=== PATIENT | female | born 1975 | race American Indian/Alaskan Native ===

== ENCOUNTER 2019-03-10 20:30 | Emergency (ER) | payer MEDICAID ==
--- NOTE | 2019-03-10 21:01 | EDM.PDOC ---
ED HPI GENERAL MEDICAL PROBLEM - General Chief Complaint: Upper Extremity Injury/Pain Stated Complaint: LEFT SHOULDERS, LEFT ARM Time Seen by Provider: 03/10/19 20:50 Source of Information: Reports: Patient History Limitations: Reports: No Limitations - History of Present Illness INITIAL COMMENTS - FREE TEXT/NARRATIVE: This 43 yo female patient reports to the ED with left shoulder pain. The patient reports she was attempting to push her vehicle yesterday at about 1700 when she slipped and fell into the car and down to the ground. The patient reports she has been taking over the counter medications and trying not to move her arm, but continues to have increased pain in her shoulder down into her left upper arm. Onset Date: 03/09/19 Duration: Constant Location: Reports: Upper Extremity, Left Quality: Reports: Ache, Sharp Severity: Moderate Improves with: Reports: Rest Worsens with: Reports: Movement Context: Reports: Activity (ground level fall) Treatments [employer]: Reports: Acetaminophen, NSAIDS Left Upper Shoulder Pain Score (Numeric/FACES): 8 - Related Data Allergies Allergy/AdvReac Type Severity Reaction Status Date / Time codeine Allergy Tachycardia Verified 03/10/19 20:42 Home Meds: Home Meds . [No Known Home Meds] 03/10/19 [History] Past Medical History Gastrointestinal History: Reports: Cholelithiasis UNPAID INTERN History: Reports: - Past Surgical History GI Surgical History: Reports: Cholecystectomy Female Surgical History: Reports: Tubal Ligation Social & Family History - Family History Family Medical History: Noncontributory - Tobacco Use Smoking Status *Q: Current Every Day Smoker Years of Tobacco use: 29 Packs/Tins Daily: 0.5 Used Tobacco, but Quit: No Second Hand Smoke Exposure: Yes - Caffeine Use Caffeine Use: Reports: Soda - Recreational Drug Use Recreational Drug Use: Yes Drug Use in Last 12 Months: Yes Recreational Drug Type: Reports: Marijuana/Hashish Recreational Drug Use Frequency: Binges Review of Systems - Review of Systems Review Of Systems: Comprehensive ROS is negative, except as noted in HPI. ED EXAM, GENERAL - Physical Exam Exam: See Below Exam Limited By: No Limitations General Appearance: Alert, WD/WN, Moderate Distress Eye Exam: Bilateral Eye: EOMI, Normal Inspection, PERRL Ears: Normal External Exam, Normal Canal, Hearing Grossly Normal, Normal TMs Nose: Normal Inspection, Normal Mucosa, No Blood Throat/Mouth: Normal Inspection, Normal Lips, Normal Teeth, Normal Gums, Normal Oropharynx, Normal Voice, No Airway Compromise Head: Atraumatic, Normocephalic Neck: Normal Inspection, Supple, Non-Tender, Full Range of Motion Respiratory/Chest: No Respiratory Distress, Lungs Clear, Normal Breath Sounds, No Accessory Muscle Use, Chest Non-Tender Cardiovascular: Normal Peripheral Pulses, Regular Rate, Rhythm, No Edema, No Gallop, No JVD, No Murmur, No Rub GI/Abdominal: Normal Bowel Sounds, Soft, Non-Tender, No Organomegaly, No Distention, No Abnormal Bruit, No Mass (Female) Exam: Deferred Rectal (Female) Exam: Deferred Back Exam: Normal Inspection, Full Range of Motion, NT Extremities: No Pedal Edema, Normal Capillary Refill, Arm Pain (left shoulder pain (tenderness to the SITS muscles with palpation). ) Neurological: Alert, Oriented, CN II-XII Intact, Normal Cognition, Normal Gait, Normal Reflexes, No Motor/Sensory Deficits Psychiatric: Normal Affect, Normal Mood Skin Exam: Warm, Dry, Intact, Normal Color, No Rash Lymphatic: No Adenopathy Course - Vital Signs Last Recorded V/S: Last Vital Signs Temp 37.4 C 03/10/19 20:48 Pulse 59 L 03/10/19 20:48 Resp 20 03/10/19 20:48 BP 94/79 03/10/19 20:48 Pulse Ox 100 03/10/19 20:48 - Orders/Labs/Meds Orders: Active Orders 24 hr Category Date Time Status DME for Discharge [COMM] Urgent Oth 03/10/19 21:34 Ordered Meds: Medications Discontinued Medications Generic Name Dose Route Start Last Admin Trade Name Claudioq PRN Reason Stop Dose Admin Hydrocodone Bitart/Acetaminophen 1 tab 03/10/19 21:34 [place] 325-10 Mg PO 03/10/19 21:35 ONETIME ONE Departure - Departure Time of Disposition: 21:37 Disposition: Home, Self-Care 01 Condition: Fair Clinical Impression: Humeral head fracture Qualifiers: Encounter type: initial encounter Fracture type: closed Laterality: left Qualified Code(s): S42.292A - Other displaced fracture of upper end of left humerus, initial encounter for closed fracture - Discharge Information *PRESCRIPTION DRUG MONITORING PROGRAM REVIEWED*: No *COPY OF PRESCRIPTION DRUG MONITORING REPORT IN PATIENT LIZ: No Instructions: Humerus Fracture Treated With Immobilization, [id number] Forms: ED Department Discharge Care Plan Goals: The patient was advised of the examination and x-ray results during the visit. The patient was placed in a left arm sling for immobilization of her left shoulder. The patient was given an oral dose of [place] (10/325) while in the ED for pain. The patient was discharged with a script for [place] (5/325) #8 to take 1 by mouth every 8 hours as needed for pain. The patient was advised to follow- up with her primary care facility for further evaluation and management. If the patient has any additional symptoms or concerns, the patient should either visit her primary care facility or return to the emergency department. Sepsis Event Note - Evaluation Sepsis Screening Result: No Definite Risk - Focused Exam Vital Signs: Vital Signs Temp Pulse Resp BP Pulse Ox 03/10/19 20:48 37.4 C 59 L 20 94/79 100 Date Exam was Performed: 03/10/19 Time Exam was Performed: 21:37 - My Orders Last 24 Hours: My Active Orders 03/10/19 21:34 DME for Discharge [COMM] Urgent - Assessment/Plan Last 24 Hours: My Active Orders 03/10/19 21:34 DME for Discharge [COMM] Urgent
[2019-03-10] MEDS ORDERED: Acetaminophen/HYDROcodone 325-10 MG Tab PO ONE (21:34)
== END 2019-03-10 21:46 | disposition home or self-care (01) ==
LOC: DL.ED 20:30
DX: S42.292A Other displaced fracture of upper end of left humerus, initial encounter for closed fracture (principal); F17.210 Nicotine dependence, cigarettes, uncomplicated; Z88.5 Allergy status to narcotic agent; W01.0XXA Fall on same level from slipping, tripping and stumbling without subsequent striking against object, initial encounter; Y93.89 Activity, other specified
CPT/HCPCS: 73030; 99283; A9270

== ENCOUNTER 2023-09-09 14:18 | Emergency (ER) | payer MEDICAID, OTHER ==
[2023-09-09] MEDS: Bacitracin Oint 1 GM U/D Packet TOP ONE (14:31)
[2023-09-09] MEDS: Lidocaine 1% with EPINEPHrine 1:100,000 20 ML MDV INJECT ONE (14:31)
[2023-09-09] MEDS: Diphtheria,Pertussis(Acell),Tetanus Vaccine 0.5 ML Syringe IM ONE (14:31)
== END 2023-09-09 14:50 | disposition home or self-care (01) ==
LOC: DL.ED 14:18
DX: S61.511A Laceration without foreign body of right wrist, initial encounter (principal); Z23 Encounter for immunization; Z88.5 Allergy status to narcotic agent; Z90.49 Acquired absence of other specified parts of digestive tract; W55.03XA Scratched by cat, initial encounter
CPT/HCPCS: 12001; 90471; 90715; 99282; A9270; J3490